=== PATIENT | male | born 1980 | race Caucasian/White ===

== ENCOUNTER 2024-10-02 20:48 | Emergency (ER) | payer OTHER, BC ==
[~2024-10-02] VITALS: Ht 190.5 cm; Wt 131.0 kg
[2024-10-02 21:50] VITALS: BP 134/87
== END 2024-10-02 21:51 | disposition home or self-care (01) ==
LOC: ED 20:48
DX: S61.211A Laceration without foreign body of left index finger without damage to nail, initial encounter (principal); W26.0XXA Contact with knife, initial encounter
CPT/HCPCS: 99282